=== PATIENT | female | born 1990 | race Caucasian/White ===

== ENCOUNTER 2022-07-01 18:23 | Emergency (ER) | payer SELFPAY ==
[2022-07-01 18:39] VITALS: BP 159/83; PULSE 66; RESP 17; TEMP 36.6; O2SAT 100; BMI 38.0
--- NOTE | 2022-07-01 18:54 | ED_ITS ---
HPI - Abdominal Pain General: Chief Complaint: Abdominal Pain Stated Complaint: L FLANK PAIN/ KIDNEY STONES Time Seen by Provider: 07/01/22 18:49 History of Present Illness: 31-year-old female comes in today for complaints of left flank pain radiating into the groin for the last 4 days. Patient reports that she was treated by antibiotics last week for a probable urinary tract infection. Patient reported that her primary care thought she might have a kidney stone. On exam patient has some left CVA tenderness. Abdomen soft nontender. Skin was warm and dry. Vital signs were normal. Differential diagnosis includes pyelonephritis, urinary calculi, cystitis, diverticulitis. CT of the abdomen pelvis noted the distal left ureteral stone at the UVJ. Urinalysis had a large amount of blood. CBC had some mild leukocytosis 18. CMP noted some mild dehydration. Associated Symptoms: Reports nausea; Denies fever(s) Review of Systems Const: Denies: fever(s) Card: Denies: chest pain Resp: Denies: dyspnea GI: Reports: abdominal pain and nausea : Reports: flank pain Musc: Reports: back pain Skin/Breast: Denies: rash Physical Exam Const: COMMON NORMALS: alert HENMT: COMMON NORMALS: normocephalic HEAD & SCALP: normocephalic Neck/C-Spine: COMMON NORMALS: full ROM Resp: COMMON NORMALS: normal respiratory effort and clear to auscultation bilaterally AUSCULTATION: clear to auscultation bilaterally Cardio: COMMON NORMALS: regular rate and regular rhythm RATE: regular rate RHYTHM: regular rhythm GI: COMMON NORMALS: Soft to palpation PALPATION: Yes Soft to palpation : BLADDER/KIDNEY EXAM: Yes CVA tenderness on the left Back/Pelvis: GENERAL BACK: Yes CVA tenderness Extremity: COMMON NORMALS: normal to inspection Neuro: SENSORIUM/ORIENTATION: Yes alert Course Vital Signs: Vital signs: Vital Signs Temperature 97.8 F 07/01/22 18:39 Pulse Rate 66 07/01/22 18:39 Respiratory Rate 17 07/01/22 18:39 Blood Pressure 159/83 07/01/22 18:39 Pulse Oximetry 100 07/01/22 18:39 Oxygen Delivery Me thod Room Air 07/01/22 18:39 MDM - Abdominal Pain Medical Decision Making 31-year-old female comes in today with complaints of left lower quadrant abdominal pain. On exam patient appears nontoxic. Patient appears in moderate pain. Patient has some left CVA tenderness. Patient has some tenderness on palpation of the left lower abdomen. Vital signs are normal. Differential diagnosis includes but not limited to renal calculi, pyelonephritis, diverticulitis. Patient has a mild leukocytosis 18,000, potassium was 3.1, urine was positive for blood. CT noted distal ureteral stone 5 mm left ureter. Reviewed exam with patient with recommendations for follow-up with urology. Patient was given medication for pain and nausea. Patient was encouraged drink plenty of fluids. Lab Data 07/01/22 18:49 07/01/22 18:49 Labs/Radiology: Radiology Impressions Abdomen/Pelvis CT 07/01/22 19:23 IMPRESSION: 5 mm obstructing calculus in the terminal left ureter with moderate hydronephrosis. Laboratory Results WBC 18.5 10^3/uL (4.0-10.0) H 07/01/22 18:49 RBC 4.88 10^6/uL (4.1-5.3) 07/01/22 18:49 Hgb 15.0 g/dL (11.5-15.3) 07/01/22 18:49 Hct 42.1 % (37.0-47.0) 07/01/22 18:49 MCV 86.3 fl (81-99) 07/01/22 18:49 MCH 30.7 pg (28.0-34.0) 07/01/22 18:49 MCHC 35.6 g/dL (30.0-36.0) 07/01/22 18:49 RDW 11.4 % (12.1-15.1) L 07/01/22 18:49 Plt Count 478 10^3/cmm (130-400) H 07/01/22 18:49 MPV 10.4 fL (7.4-10.4) 07/01/22 18:49 Neut % (Auto) 68.0 % 07/01/22 18:49 Lymph % (Auto) 24.6 % 07/01/22 18:49 [place] % (Auto) 5.9 % 07/01/22 18:49 Eos % (Auto) 0.6 % 07/01/22 18:49 Baso % (Auto) 0.4 % 07/01/22 18:49 Neut # (Auto) 12.60 10^3/uL (1.8-7.7) H 07/01/22 18:49 Lymph # (Auto) 4.6 10^3/uL (0.8-4.8) 07/01/22 18:49 [place] # (Auto) 1.1 10^3/uL (0.2-0.9) H 07/01/22 18:49 Eos # (Auto) 0.1 10^3/uL (0.0-0.8) 07/01/22 18:49 Baso # (Auto) 0.1 10^3/uL (0.0-0.1) 07/01/22 18:49 Nucleated RBC % (auto) 0 % 07/01/22 18:49 Nucleated RBCs # 0.0 /100WBC 07/01/22 18:49 Sodium 136 mmol/L (136-145) 07/01/22 18:49 Potassium 3.1 mmol/L (3.5-5.1) L 07/01/22 18:49 Chloride 99 mmol/L (98-107) 07/01/22 18:49 Carbon Dioxide 16 mmol/L (22-29) L 07/01/22 18:49 Anion Gap 24.1 (5-19) H 07/01/22 18:49 BUN 13 mg/dL (6-20) 07/01/22 18:49 Creatinine 0.9 mg/dL (0.5-0.9) 07/01/22 18:49 GFR Calculation 74.0 mL/min (90-130) L 07/01/22 18:49 Glucose 155 mg/dL (65-115) H 07/01/22 18:49 Calculated Osmolality 285 mOsm/kg (285-295) 07/01/22 18:49 Calcium 9.4 mg/dL (8.5-10.5) 07/01/22 18:49 Total Bilirubin 0.5 mg/dL (0.15-1.2) 07/01/22 18:49 AST 24 U/L (0-32) 07/01/22 18:49 ALT 41 U/L (0-33) H 07/01/22 18:49 Alkaline Phosphatase 103 U/L (35-105) 07/01/22 18:49 Total Protein 7.5 g/dL (6.6-8.7) 07/01/22 18:49 Albumin 4.7 g/dL (3.5-5.2) 07/01/22 18:49 Globulin 2.8 g/dL (1.3-4.6) 07/01/22 18:49 Lipase 47 U/L (13-60) 07/01/22 18:49 HCG, Qual Negative (Negative) 07/01/22 18:49 Urine Color Yellow (Yellow) 07/01/22 19:18 Urine Appearance Sl cloudy (CLEAR) A 07/01/22 19:18 Urine pH 6 (5-7) 07/01/22 19:18 Ur Specific [place] 1.025 (1.005-1.030) 07/01/22 19:18 Urine Protein Neg (Negative) 07/01/22 19:18 Urine Glucose (UA) 2+ (Normal) H 07/01/22 19:18 Urine Ketones 3+ (Negative) H 07/01/22 19:18 Urine Blood 3+ (Negative) H 07/01/22 19:18 Urine Nitrate Negative (Negative) 07/01/22 19:18 Urine Bilirubin Neg (Negative) 07/01/22 19:18 Urine Urobilinogen 1 mg/dL (Negative) H 07/01/22 19:18 Ur Leukocyte Esterase Negative (Negative) 07/01/22 19:18 Urine RBC 50-80 /hpf (0-2) H 07/01/22 19:18 Urine WBC 5-10 /hpf (0-5) H 07/01/22 19:18 Ur Squamous Epith Cells 10-15 /hpf (0-5) H 07/01/22 19:18 Amorphous Sediment Not Reportable 07/01/22 19:18 Urine Bacteria Trace /hpf (NONE) 07/01/22 19:18 Urine Mucus 3+ /hpf 07/01/22 19:18 Discharge Plan Discharge Patient Disposition: Home Clinical Impression: Calculus of distal left ureter Condition: Stable Prescriptions: New ondansetron 4 mg tablet,disintegrating 4 mg PO Q8H PRN (Reason: nausea and vomiting) Qty: 10 0RF hydrocodone-acetaminophen 5-325 mg tablet 1 tab PO Q6H PRN (Reason: pain (scale score 7-10)) Qty: 14 0RF Discharge Orders: Discharge ED (Routine); Ordered 07/01/22 Ordered By: Suleman Lowe Referrals: Donta Parikh MD [Primary Care Provider] - Discharge Diet: Usual diet Discharge Activity: Increase activity as tolerated Patient Instructions: Kidney Stones (ED), How to Strain Your Urine (ED), Opioid Safety Activity Restrictions/Additional Instructions: Drink plenty of fluids. Use a dancer Perez as needed for nausea and/or vomiting. Use hydrocodone for severe pain. Use acetaminophen and ibuprofen for further pain relief. Follow-up with urologist for further evaluation and treatment. Return to ED for worsening symptoms such as inability to hold fluids down, no urine output within 8 hours, high fever greater than 100.4, or new concerns. Coding Level of Care Code ED Want Ad Supervisor for Sandrine Schultz
[2022-07-01 19:15] LABS: Basophils # 0.1 10^3/uL (0.0-0.1); Basophils % 0.4 %; Eosinophils # 0.1 10^3/uL (0.0-0.8); Eosinophils % 0.6 %; Hematocrit 42.1 % (37.0-47.0); Lymphocytes # 4.6 10^3/uL (0.8-4.8); Lymphocytes % 24.6 %; Mean Corpuscular HGB Conc 35.6 g/dL (30.0-36.0); Mean Corpuscular Hemoglobin 30.7 pg (28.0-34.0); Mean Corpuscular Volume 86.3 fl (81-99); Mean Platelet Volume 10.4 fL (7.4-10.4); Monocytes # 1.1 10^3/uL (0.2-0.9); Monocytes % 5.9 %; Nucleated Red Blood Cells % 0 %; Platelet Count 478 10^3/cmm (130-400); Red Blood Count 4.88 10^6/uL (4.1-5.3); Red Cell Distribution Width 11.4 % (12.1-15.1); White Blood Count 18.5 10^3/uL (4.0-10.0)
--- NOTE | 2022-07-01 19:23 | CTR_ITS ---
PROCEDURE INFORMATION: Exam: CT Abdomen And Pelvis Without Contrast Exam date and time: 07/01/2022 7:33 PM Age: 31 years old Clinical indication: Abdominal pain; Flank; Left; Prior surgery; Surgery date: 6+ months; Surgery type: x 2; Additional info: Left flank pain radiating into abd TECHNIQUE: Imaging protocol: Computed tomography of the abdomen and pelvis without contrast. Radiation optimization: All CT scans at this facility use at least one of these dose optimization techniques: automated exposure control; mA and/or kV adjustment per patient size (includes targeted exams where dose is matched to clinical indication); or iterative reconstruction. REPORTING DATA: Count of CT and Cardiac NM exams in prior 12 months: This patient has received 0 known CTs and 0 known cardiac nuclear medicine studies in the 12 months prior to the current study. COMPARISON: No relevant prior studies available. RADIATION DOSE METRICS: Total DLP (mGy-cm): 879 FINDINGS: Liver: Diffuse fatty infiltration of the liver. Gallbladder and bile ducts: Normal. No calcified stones. No ductal dilation. Pancreas: Normal. No ductal dilation. Spleen: Normal. No splenomegaly. Adrenal glands: Normal. No mass. Kidneys and ureters: Moderate left hydronephrosis and columning of the left ureter. 5 mm calculus in the terminal left ureter. The right kidney is unremarkable. Stomach and bowel: Mild diverticulosis of the distal colon. No diverticulitis. The stomach and small bowel are unremarkable. No obstruction. Appendix: The appendix is visualized and is normal. Intraperitoneal space: Unremarkable. No free air. No significant fluid collection. Vasculature: Unremarkable. No abdominal aortic aneurysm. Lymph nodes: Unremarkable. No enlarged lymph nodes. Urinary bladder: Unremarkable as visualized. Reproductive: Unremarkable as visualized. Bones/joints: Unremarkable. No acute fracture. Soft tissues: Small fat containing umbilical hernia. CT/CT kidney stone [id number] IMPRESSION: 5 mm obstructing calculus in the terminal left ureter with moderate hydronephrosis.
[2022-07-01 19:28] LABS: HCG, Serum Qual Negative (Negative)
[2022-07-01 19:32] LABS: Alanine Aminotransferase 41 U/L (0-33); Albumin Level 4.7 g/dL (3.5-5.2); Alkaline Phosphatase 103 U/L (35-105); Anion Gap 24.1 (5-19); Aspartate Amino Transferase 24 U/L (0-32); Blood Urea Nitrogen 13 mg/dL (6-20); Calcium 9.4 mg/dL (8.5-10.5); Carbon Dioxide 16 mmol/L (22-29); Chloride 99 mmol/L (98-107); Globulin 2.8 g/dL (1.3-4.6); Glucose 155 mg/dL (65-115); Lipase 47 U/L (13-60); Osmolality Calculated 285 mOsm/kg (285-295); Potassium 3.1 mmol/L (3.5-5.1); Sodium 136 mmol/L (136-145); Total Bilirubin 0.5 mg/dL (0.15-1.2); Total Protein 7.5 g/dL (6.6-8.7)
[2022-07-01 19:48] LABS: Add Urine Microscopic? YES; Bilirubin Urine Neg (Negative); Blood Urine 3+ (Negative); Glucose Urine UA 2+ (Normal); Ketones Urine 3+ (Negative); Leukocyte Esterase Urine Negative (Negative); Nitrate Urine Negative (Negative); Protein Urine Neg (Negative); Specific Gravity, Urine 1.025 (1.005-1.030); Urine Color Yellow (Yellow); Urobilinogen Urine 1 mg/dL (Negative); pH Urine 6 (5-7)
[2022-07-01 19:49] LABS: Add Urine Culture? No; Bacteria Urine TRACE /hpf; Mucus Urine 3+ /hpf; RBC Urine 50-80 /hpf (0-2)
--- NOTE | 2022-07-02 07:45 | DCPLANNER ---
Addendum entered by Bailey Cuba 07/08/22 13:49: enterprise applications manager called to confirm that [facility] had received patients information. enterprise applications manager was told that clinic did receive patients information. Addendum entered by Bailey Cuba 07/03/22 12:47: enterprise applications manager received the following message from urology regarding follow up appointment: Patient was not able to make appt scheduled for her with Urology, I spoke with her about the possibility of her being referred to [facility] and she agreed that it would be better for her because it is closer to where she lives in [place]. Please refer patient to [facility]. Thanks! enterprise applications manager faxed patients information to the [facility], it will be reviewed, and clinic will call patient with appointment information. Original Note: enterprise applications manager had message to schedule a follow up appointment for patient with urology. enterprise applications manager sent patients information to the front office staff at urology. Patients information will be printed and reviewed. Clinic will call patient with appointment information.
== END 2022-07-01 21:10 | disposition home or self-care (01) ==
PROVIDERS: Emergency Medicine; Emergency Provider Nurse Practitioner Family; PCP Family Medicine
DX: N13.2 Hydronephrosis with renal and ureteral calculous obstruction (principal)
CPT/HCPCS: 74176; 80053; 81001; 83690; 84703; 85025; 99284